=== PATIENT | male | born 1970 | race Caucasian/White ===

== ENCOUNTER 2018-01-07 10:42 | Observation (INO) | payer OTHER ==
--- NOTE | 2018-01-07 11:54 | ER Document Report ---
ED Medical Screen (RME) - General Chief Complaint: Chest Pain Stated Complaint: CHEST PAIN Time Seen by Provider: 01/07/18 11:52 Notes: Patient states that over the last couple weeks she has had multiple episodes where he gets dizzy and the room starts spinning. He states he is also had some left shoulder pain. He had an episode this morning where after climbing some stairs and sitting down for a meeting he became very dizzy and had some left shoulder pain. He states this weekend he usually runs 3-5 miles on a treadmill however he was only able to go about 1/4 mile became so dizzy he had to stop. He did state that he went to an urgent care for this about 2 weeks ago and was placed on a Holter monitor for 24 hours. There is also that were negative. He denies any chronic medical conditions. No previous cardiac disease. TRAVEL OUTSIDE OF THE [place] IN LAST 30 DAYS: No - Related Data Allergies/Adverse Reactions: No Known Allergies Allergy (Verified 01/07/18 11:40) Past Medical History - Social History Chew tobacco use (# tins/day): No Frequency of alcohol use: Rare Drug Abuse: None - Past Medical History Cardiac Medical History: Denies: Hx Coronary Artery Disease, Hx Heart Attack, Hx Hypertension Pulmonary Medical History: Denies: Hx Asthma, Hx Bronchitis, Hx COPD, Hx Pneumonia Neurological Medical History: Denies: Hx Cerebrovascular Accident, Hx Seizures Renal/ Medical History: Denies: Hx Peritoneal Dialysis GI Medical History: Reports: Hx Gastroesophageal Reflux Disease Musculoskeltal Medical History: Denies Hx Arthritis Past Surgical History: Reports: Hx Cholecystectomy, Hx Orthopedic Surgery. Denies: Hx Pacemaker - Immunizations Hx Diphtheria, Pertussis, Tetanus Vaccination: Yes Physical Exam - Vital signs Vitals: Temp Pulse Resp BP Pulse Ox 98.8 F 85 17 139/60 H 97 01/07/18 10:50 01/07/18 10:50 01/07/18 10:50 01/07/18 10:50 01/07/18 10:50 Course - Vital Signs Vital signs: Temp Pulse Resp BP Pulse Ox 98.8 F 85 17 139/60 H 97 01/07/18 10:50 01/07/18 10:50 01/07/18 10:50 01/07/18 10:50 01/07/18 10:50
[2018-01-07 12:27] LABS: ABSOLUTE LYMPHOCYTES (AUTO) 1.8 10^3/uL (0.5-4.7); ABSOLUTE MONOCYTES (AUTO) 0.5 10^3/uL (0.1-1.4); ABSOLUTE NEUT (AUTO) 5.6 10^3/uL (1.7-8.2); BASOPHILS % (AUTO) 0.3 % (0-2); EOSINOPHILS % (AUTO) 0.5 % (0-6); HEMATOCRIT 49.2 % (37.9-51.0); HEMOGLOBIN 16.7 g/dL (13.5-17.0); LYMPHOCYTES % (AUTO) 22.9 % (13-45); MEAN CORPUSCULAR HEMOGLOBIN 30.2 pg (27.0-33.4); MEAN CORPUSCULAR HGB CONC 33.9 g/dL (32.0-36.0); MEAN CORPUSCULAR VOLUME 89 fl (80-97); MONOCYTES % (AUTO) 6.6 % (3-13); PLATELET COUNT 282 10^3/uL (150-450); RED BLOOD COUNT 5.52 10^6/uL (4.35-5.55); RED CELL DISTRIBUTION WIDTH 13.6 % (11.5-14.0); SEGMENTED NEUTROPHILS % (AUTO) 69.7 % (42-78); TOTAL CELLS COUNTED % (AUTO) 100 %; WHITE BLOOD COUNT 8.1 10^3/uL (4.0-10.5)
[2018-01-07 12:47] LABS: ALANINE AMINOTRANSFERASE 43 U/L (21-72); ALBUMIN 4.5 g/dL (3.5-5.0); ALKALINE PHOSPHATASE 59 U/L (38-126); ANION GAP 11 (5-19); ASPARTATE AMINO TRANSFERASE 30 U/L (17-59); BILIRUBIN,DIRECT 0.4 mg/dL (0.0-0.4); BILIRUBIN,TOTAL 0.5 mg/dL (0.2-1.3); BLOOD UREA NITROGEN 15 mg/dL (7-20); CALCIUM 9.7 mg/dL (8.4-10.2); CARBON DIOXIDE 29 mmol/L (22-30); CHLORIDE 102 mmol/L (98-107); GLUCOSE 91 mg/dL (75-110); POTASSIUM 4.9 mmol/L (3.6-5.0); SODIUM 142.2 mmol/L (137-145); TOTAL PROTEIN 7.9 g/dL (6.3-8.2)
--- NOTE | 2018-01-07 13:17 | EKG REPORT ---
SEVERITY:- NORMAL ECG - SINUS RHYTHM : Confirmed by: Bob Michel MD 07-Jan-2018 13:16:30
--- NOTE | 2018-01-07 16:25 | ER Document Report ---
ED General - General Mode of Arrival: Ambulatory Information source: Patient TRAVEL OUTSIDE OF THE [place] IN LAST 30 DAYS: No <ADRIANA RUFF - Last Filed: 01/07/18 17:56> <MARTHA EDOUARD - Last Filed: 01/07/18 22:16> - General Chief Complaint: Chest Pain Stated Complaint: CHEST PAIN Time Seen by Provider: 01/07/18 11:52 Notes: Patient is a 47-year-old male with a history of GERD presents to the emergency department complaining of intermittent heart palpitations and dizziness onset 1 month ago worsening today. Patient states that his dizziness and heart palpitations is exasperated with movement and exercise. Patient states when he was recently running on a treadmill when he was only able to run 1/4 of a mile before becoming light headed when he is normally able to run a couple of miles. Patient states that he went to urgent care and was directed to come to the emergency department. Patient also complains of some left shoulder pain. ( ADRIANA RUFF) - Related Data Allergies/Adverse Reactions: No Known Allergies Allergy (Verified 01/07/18 11:40) Past Medical History - General Information source: Patient - Social History Smoking Status: Never Smoker Chew tobacco use (# tins/day): No Frequency of alcohol use: Rare Drug Abuse: None Family History: Reviewed & Not Pertinent Patient has suicidal ideation: No Patient has homicidal ideation: No GI Medical History: Reports: Hx Gastroesophageal Reflux Disease Past Surgical History: Reports: Hx Cholecystectomy, Hx Orthopedic Surgery - Immunizations Hx Diphtheria, Pertussis, Tetanus Vaccination: Yes <ADRIANA RUFF - Last Filed: 01/07/18 17:56> Review of Systems - Review of Systems Constitutional: No symptoms reported EENT: No symptoms reported Cardiovascular: See HPI, Palpitations, Dizziness, Lightheaded Respiratory: No symptoms reported Gastrointestinal: No symptoms reported Genitourinary: No symptoms reported Male Genitourinary: No symptoms reported Musculoskeletal: No symptoms reported Skin: No symptoms reported Hematologic/Lymphatic: No symptoms reported Neurological/Psychological: No symptoms reported -: Yes All other systems reviewed and negative <ADRIANA RUFF - Last Filed: 01/07/18 17:56> Physical Exam <ADRIANA RUFF - Last Filed: 01/07/18 17:56> <MARTHA EDOUARD - Last Filed: 01/07/18 22:16> - Vital signs Vitals: Temp Pulse Resp BP Pulse Ox 98.8 F 85 17 139/60 H 97 01/07/18 10:50 01/07/18 10:50 01/07/18 10:50 01/07/18 10:50 01/07/18 10:50 - Notes Notes: GENERAL: Alert, interacts well. No acute distress. HEAD: Normocephalic, atraumatic. EYES: Pupils equal, round, and reactive to light. Extraocular movements intact. ENT: Oral mucosa moist, tongue midline. NECK: Full range of motion. Supple. Trachea midline. LUNGS: Clear to auscultation bilaterally, no wheezes, rales, or rhonchi. No respiratory distress. HEART: Regular rate and rhythm. No murmurs, gallops, or rubs. EXTREMITIES: Moves all 4 extremities spontaneously. NEUROLOGICAL: Alert and oriented x3. Normal speech. PSYCH: Normal affect, normal mood. SKIN: Warm, dry, normal turgor. No rashes or lesions noted. (ADRIANA RUFF) Course - Laboratory Result Diagrams: 01/07/18 11:53 01/07/18 11:53 <ADRIANA RUFF - Last Filed: 01/07/18 17:56> - Laboratory Result Diagrams: 01/07/18 11:53 01/07/18 11:53 - Diagnostic Test Radiology reviewed: Reports reviewed - EKG Interpretation by Ct EKG shows normal: Sinus rhythm Rate: Normal Rhythm: NSR <MARTHA EDOUARD - Last Filed: 01/07/18 22:16> - Re-evaluation Re-evalutation: 01/07/18 17:50 Dr. Flynn recommends patient for admission. 01/07/18 17:56 Dr. Robb accepts patient for admission. (ADRIANA RUFF) Patient is a 47-year-old male who presents complaining of dizziness and left- sided chest pain into his arm. No chest pain currently. Troponin is negative. No acute EKG findings. Patient has been having increasing symptoms over the last month. Discussed with cardiology and the hospitalist service. Patient will be kept for stress test tomorrow. He is agreeable to this plan. Aspirin has been given. Stable for admission. (MARTHA EDOUARD) - Vital Signs Vital signs: Temp Pulse Resp BP Pulse Ox 98.2 F 71 18 133/80 H 97 01/07/18 20:02 01/07/18 20:02 01/07/18 20:02 01/07/18 20:02 01/07/18 20:02 Discharge - Discharge Admitting Provider: Dr. Robb <ADRIANA RUFF - Last Filed: 01/07/18 17:56> - Discharge Admitting Provider: Oneal robb Unit Admitted: Telemetry <MARTHA EDOUARD - Last Filed: 01/07/18 22:16> - Discharge Clinical Impression: Dizziness Chest pain Qualifiers: Chest pain type: unspecified Qualified Code(s): R07.9 - Chest pain, unspecified Condition: Stable Disposition: ADMITTED OBSERVATION Scribe Attestation: 01/07/18 22:16 I personally performed the services described in the documentation, reviewed and edited the documentation which was dictated to the scribe in my presence, and it accurately records my words and actions. (MARTHA EDOUARD) Scribe Documentation - Scribe Written by Alex:: Alex Schafer, 01/07/2018 16:26 acting as scribe for :: James <ADRIANA RUFF - Last Filed: 01/07/18 17:56>
--- NOTE | 2018-01-07 17:38 | RADIOLOGY REPORT (SQ) ---
EXAM DESCRIPTION: CTA CHEST COMPLETED DATE/TIME: 01/07/2018 5:23 pm REASON FOR STUDY: evaluate for PE COMPARISON: None. TECHNIQUE: CT scan of the chest performed using helical scanning technique with dynamic intravenous contrast injection. Images reviewed with lung, soft tissue and bone windows. Reconstructed coronal and sagittal MPR images reviewed. Additional 3 dimensional post-processing performed to develop Maximal Intensity Projection images (VA P). All images stored on PACS. All CT scanners at this facility use dose modulation, iterative reconstruction, and/or weight based d osing when appropriate to reduce radiation dose to as low as reasonably achievable (ALARA). [facility]: Dose Right [facility]: CareDose [facility]: Dose Right [facility]: Teradose 4D [facility]: [employer] CONTRAST TYPE AND DOSE: Contrast bolus optimized for the pulmonary arteries. Not diagnostic for the aorta. RENAL FUNCTION: BUN 15 creatinine 1 RADIATION DOSE: CT Rad equipment meets quality standard of care and radiation dose reduction techniq ues were employed. CTDIvol: 16.5 - 16.6 mGy. DLP: 631 mGy-cm. . LIMITATIONS: None. FINDINGS: LUNGS AND PLEURA: No masses, infiltrates, pneumothorax. No pleural effusions, calcificati ons. AORTA AND GREAT VESSELS: No aneurysm. No dissection. HEART: No pericardial effusion. No significant coronary artery calcifications. PULMONARY ARTERIES: No emboli visualized in the main pulmonary arteries or the segmental branches. HILAR AND MEDIASTINAL STRUCTURES: No identified masses or abnormal nodes. HARDWARE: None in the chest. UPPER ABDOMEN: No significant findings. Limited exam. THYROID AND OTHER SOFT TISSUES: No masses. No adenopathy. BONES: No acute or significant finding. 3D MIPS: Confirm above findings. OTHER: No other significant finding. IMPRESSION: NORMAL CTA OF THE CHEST. NO PULMONARY EMBOLI. COMMENT: Quality ID # [id number]: Final reports with documentation of one or more dose reduction techniques (e.g., Automated exposure control, adjustment of the mA and/or kV according to patient size, use of iterative reconstruction technique) TECHNICAL DOCUMENTATION: JOB ID: [id number] [employer]- All Rights Reserved Reading location - IP/workstation name: [email or web address]
[2018-01-07] MEDS ORDERED: ASPIRIN 81 MG TABLET, CHEWABLE PO ONE (17:48)
[2018-01-07] MEDS ORDERED: NORMAL SALINE 1000 ML 1,000 ML IV PRN (19:06)
[2018-01-07] MEDS ORDERED: PROMETHAZINE HCL INJ 25 MG/1 ML VIAL IV PRN (19:06)
[2018-01-07] MEDS ORDERED: ACETAMINOPHEN 325 MG TABLET PO PRN (19:06)
[2018-01-07] MEDS ORDERED: MECLIZINE HCL 25 MG TABLET PO PRN (20:19)
--- NOTE | 2018-01-07 20:56 | PDOC H&P ---
History of Present Illness Admission Date/PCP: 01/07/18 18:02 Patient complains of: Vertigo and left-sided "shoulder" pain around 8:30 AM. History of Present Illness: CODEY JOY is a 47 year old male with no significant medical history was admitted with above-mentioned complaints. According to the patient, he had a" dizzy spell" and felt some left-sided shoulder pain 15 minutes after he climbed stair at his job. The episode lasted about half an hour and resolved without any intervention. The pain was associated with some palpitations but he denied any shortness of breath, nausea vomiting, diaphoresis or any syncope. He also denied any fever, chills or any cough or recent URI. He has heartburn for which he takes Dexilant. The patient said that he has been going to the gym 2-3 times a week since July 2017. He apparently had "vertiginous spells" intermittently and the last time was few days ago where he actually had to leave the gym because he was dizzy. He denied any focal weakness or numbness or any dysarthria or blurred vision. In the ED, his temperature was 98.8, heart rate 85, respiratory rate 17, blood pressure 139/60 with oxygen saturation of 97% on room air. His WBC was 8.1, hemoglobin 6.7. His troponins 2 sets are negative. A CAT scan angiogram of the chest was done which was negative for any PE. Past Medical History Cardiac Medical History: Denies: Coronary Artery Disease, Myocardial Infarction, Hypertension Pulmonary Medical History: Denies: Asthma, Bronchitis, Chronic Obstructive Pulmonary Disease (COPD), Pneumonia Neurological Medical History: Denies: Seizures GI Medical History: Reports: Gastroesophageal Reflux Disease Musculoskeltal Medical History: Denies: Arthritis Hematology: Denies: Anemia Past Surgical History Past Surgical History: Reports: Cholecystectomy, Orthopedic Surgery - right knee surgery and right knee ewing's cyst removed. Denies: Pacemaker Social History Smoking Status: Never Smoker Frequency of Alcohol Use: Rare Hx Recreational Drug Use: No - Advance Directive Resuscitation Status: Full Code Family History Parental Family History Reviewed: Yes - Father: CAD/[place] @ 50 Children Family History Reviewed: No Sibling(s) Family History Reviewed.: Yes Medication/Allergy Home Medications: Dexlansoprazole [Dexilant 60 mg Capsule] 60 mg PO DAILY 01/07/18 Allergies/Adverse Reactions: No Known Allergies Allergy (Verified 01/07/18 11:40) Review of Systems ROS unobtainable: Other - Pertinent positives and negatives as detailed in the HPI. The patient denies any abdominal pain, diarrhea, constipation or any urinary symptoms or focal deficit. Physical Exam Vital Signs: Temp Pulse Resp BP Pulse Ox 98.8 F 85 18 134/96 H 98 01/07/18 10:50 01/07/18 10:50 01/07/18 16:01 01/07/18 16:01 01/07/18 16:01 General appearance: PRESENT: no acute distress, well-developed, well-nourished Head exam: PRESENT: atraumatic, normocephalic Eye exam: PRESENT: conjunctiva pink, PERRLA. ABSENT: scleral icterus Ear exam: PRESENT: TM's normal bilaterally Mouth exam: PRESENT: moist, tongue midline Neck exam: PRESENT: full ROM. ABSENT: JVD Respiratory exam: PRESENT: clear to auscultation zoe. ABSENT: rales, rhonchi, wheezes Cardiovascular exam: PRESENT: RRR, +S1, +S2 Pulses: PRESENT: normal dorsalis pedis pul GI/Abdominal exam: PRESENT: normal bowel sounds, soft. ABSENT: distended, rebound, tenderness Rectal exam: PRESENT: deferred Extremities exam: ABSENT: pedal edema Neurological exam: PRESENT: alert, altered, awake. ABSENT: CN II-XII grossly intact, motor sensory deficit Results Laboratory Results: CBC: WBC 8.1, hemoglobin 16.7, hematocrit 49.2, MCV 89, W 13.6, platelets 282. CMP: Sodium 142.2, potassium 4.9, chloride 102, bicarb 29, anion gap 11, BUN 15 , creatinine 0.97. Liver enzymes within normal limits. TSH 1.59. Troponin 2 sets negative. EKG Comments: 12 lead EKG: Sinus rhythm, ventricular rate 80, [place] 0, LDH, no acute changes. No previous 12-lead EKG to compare. Impressions: Chest/Abdomen CTA 01/07/18 16:18 IMPRESSION: NORMAL CTA OF THE CHEST. NO PULMONARY EMBOLI. Assessment & Plan - Diagnosis (1) Chest pain at rest Is this a current diagnosis for this admission?: Yes Plan: Questionable cardiac and/or musculoskeletal. CTA chest negative. Troponin 2 negative and there are no acute changes on his 12-lead EKG. We will check fasting lipid profile and an echocardiogram and schedule him for nuclear stress test in a.m. (2) Vertigo Is this a current diagnosis for this admission?: Yes Plan: Peripheral and/or central. The patient denied any recent URI and his ear exam was unremarkable. We will check a head MRI and if it is negative he may to be referred to vestibular therapy as outpatient. Meclizine as needed. Of note, the patient had a holter monitor on 01/01/2018 (indication: Dizziness) which was negative. An event monitor/cardiology consult were recommended. (3) GERD (gastroesophageal reflux disease) Qualifiers: Esophagitis presence: esophagitis presence not specified Qualified Code(s) : K21.9 - Gastro-esophageal reflux disease without esophagitis Is this a current diagnosis for this admission?: No Plan: PPI. - Time Time Spent: 50 to 70 Minutes Anticipated discharge: Home
[2018-01-07] MEDS: HEPARIN SOD (PORCINE) 5,000 UNIT/ML 1 ML SYRINGE SUBCUT SCH (21:43)
[2018-01-07 22:23] LABS: APPEARANCE,URINE CLOUDY; BILIRUBIN,URINE NEGATIVE (NEGATIVE); COLOR,URINE YELLOW; GLUCOSE, URINE NEGATIVE (NEGATIVE); KETONES,URINE NEGATIVE (NEGATIVE); LEUKOCYTE ESTERASE,URINE NEGATIVE (NEGATIVE); NITRITE,URINE NEGATIVE (NEGATIVE); PROTEIN,URINE NEGATIVE (NEGATIVE); UROBILINOGEN,URINE NEGATIVE mg/dL (<2.0)
[2018-01-07 22:31] LABS: URINE SPECIFIC GRAVITY > 1.060
[2018-01-08 05:10] LABS: HEMATOCRIT 45.7 % (37.9-51.0); HEMOGLOBIN 15.5 g/dL (13.5-17.0); MEAN CORPUSCULAR HEMOGLOBIN 30.4 pg (27.0-33.4); MEAN CORPUSCULAR VOLUME 89 fl (80-97); PLATELET COUNT 253 10^3/uL (150-450); RED BLOOD COUNT 5.11 10^6/uL (4.35-5.55); RED CELL DISTRIBUTION WIDTH 14.1 % (11.5-14.0); WHITE BLOOD COUNT 6.9 10^3/uL (4.0-10.5)
[2018-01-08 05:33] LABS: ANION GAP 10 (5-19); BLOOD UREA NITROGEN 16 mg/dL (7-20); CALCIUM 8.9 mg/dL (8.4-10.2); CARBON DIOXIDE 25 mmol/L (22-30); CHLORIDE 108 mmol/L (98-107); GLUCOSE 95 mg/dL (75-110); POTASSIUM 4.4 mmol/L (3.6-5.0); SODIUM 143.2 mmol/L (137-145)
[2018-01-08] MEDS: HEPARIN SOD (PORCINE) 5,000 UNIT/ML 1 ML SYRINGE SUBCUT SCH ×2 (06:14→16:38)
[2018-01-08 07:47] LABS: CHOLESTEROL 171.78 mg/dL (0-200); TRIGLYCERIDES 263 mg/dL (<150)
[2018-01-08 07:58] LABS: DIRECT LDL 129 mg/dL (<100)
[2018-01-08] MEDS ORDERED: LANSOPRAZOLE 30 MG TAB.RAP.DR PO SCH (08:00)
[2018-01-08 08:01] LABS: VLDL CHOLESTEROL 52.6 mg/dL (10-31)
[2018-01-08] MEDS ORDERED: ASPIRIN 325 MG TABLET, ENT COATED PO SCH (10:00)
--- NOTE | 2018-01-08 12:14 | DRAGON STRESS TEST REPORT ---
INTRAVENOUS LEXISCAN CARDIOLITE STRESS TEST USING SINGLE PHOTON EMMISION COMPUTERIZED TOMOGRAPHIC. DATE OF PROCEDURE: January 08, 2018, INDICATION : Chest pain CARDIAC RISK FACTORS: Family history of CAD RESTING EKG: Sinus rhythm without any baseline ST-T wave changes STRESS EKG: No significant changes noted with LexiScan bolus REASON FOR TERMINATION: Protocol. PROCEDURE REPORT: Baseline heart rate 76 beats per minute with blood pressure of 114/75. Patient had no significant complaints. Heart rate at 2 minutes post bolus 115 with a blood pressure of 127/72. 3 minutes post bolus heart rate 89 with blood pressure of 128/75. No significant EKG changes were noted. Patient had no significant complaints during the procedure or postprocedure. Patient injected with Aminophyllin 75 mg at 3 minutes or later after Lexiscan bolus. CONCLUSIONS: Normal EKG and hemodynamic response to IV LexiScan. NUCLEAR DATA: At rest the patient was given 14.19 millicuries of technetium 99 sestamibi injected intravenously. As per protocol rest gated SPECT images were obtained. On day of stress test, the patient was given intravenous LexiScan at a dose of 0.4 mg in 5 mL intravenously, followed by flush with normal saline. Subsequently the stress dose of 42.8 millicuries of technetium 99 sestamibi was injected intravenously. As per protocol stress gated images were obtained. NUCLEAR INTERPRETATION: Both raw and processed data were used for interpretation. Visual, qualitative, computer-generated quantitative data was used. There was good myocardial uptake of technetium compound. Motion artifact and soft tissue attenuations were noted. Increased visceral uptake was noted. No definitive areas of transient perfusion defect noted except for mild/borderline decreased uptake in the distal anterior wall possibly related to attenuation artifact. Clinical correlation is requested, there were no corresponding wall motion abnormalities noted on gated imaging. No definitive areas of fixed perfusion defect or scars noted. EKG gated imaging showed LV EF at 54 %, rest and stress gated EF similar visually. T. I D. ratio was 1.12. Lung heart ratio noted to be within normal limits 0.30. No significant extracardiac and abnormal radiotracer activities were noted. RV free wall uptake was noted to be WNL. IMPRESSION: Also refer to comments under nuclear interpretation. Also test results needs to be interpreted in the context of pretest probability. 1. No definitive areas of transient perfusion defect noted except for mild/ borderline decreased uptake in the distal anterior wall possibly related to attenuation artifact. Clinical correlation is requested. 2. There is no definitive scintigraphic evidence of myocardial infarction/scar. 3. EKG gated imaging shows left ventricular ejection fraction of approx. 54 %. 4. Clinical correlation requested as occasionally single vessel disease or balanced ischemia could be missed. In approximately 10% of the cases Lexiscan may not cause adequate vasodilatory stress. RECOMMENDATIONS: Aggressive risk factor modification and medical management. Further evaluation may be needed if continued symptoms or other high risk indicators are noted on clinical evaluation. Close cardiology follow-up is also recommended. Clinical correlation with echocardiogram derived ejection fraction. Inability to exercise by itself can lead to increased cardiovascular event risks. Consider cardiology consultation and or follow-up if clinically indicated. 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 DEO
--- NOTE | 2018-01-08 15:37 | RADIOLOGY REPORT (SQ) ---
EXAM DESCRIPTION: MRI HEAD WITHOUT COMPLETED DATE/TIME: 01/08/2018 2:32 pm REASON FOR STUDY: acute neurologic syndrome COMPARISON: None. TECHNIQUE: Multiplanar imaging includes non-contrasted T1, T2, FLAIR, and diffusion with ADC map seq uences. Images stored on PACS. LIMITATIONS: None. FINDINGS: ANATOMY: No anomalies. Normal vascular flow voids. Pituitary fossa normal. CSF SPACES: Normal in size and contour. No hemorrhage. CEREBRUM: Sulci and gyri normal in size and contour. Normal white matter signal on FLAIR imaging. No evidence of hemorrhage, mass, or extraaxial fluid collection. POSTERIOR FOSSA: No signal alteration. No hemorrhage. No edema, masses or mass effect. Internal taz tory canals, cerebello-pontine angles, mastoids normal. DIFFUSION IMAGING: Negative for acute or sub-acute infarction. ORBITS: No masses. Globes normal. PARANASAL SINUSES: No fluid levels. Mucosa normal. OTHER: No other significant finding. IMPRESSION: NORMAL MRI OF THE BRAIN WITHOUT INTRAVENOUS GADOLINIUM CONTRAST. EVIDENCE OF ACUTE STROKE: NO. TECHNICAL DOCUMENTATION: JOB ID: [id number] [email or web address]- All Rights Reserved Reading location - IP/workstation name: [email or web address]
[2018-01-08] MEDS ORDERED: AMINOPHYLLINE INJ/PF 250 MG/10 ML SDV IV ONE (16:18)
[2018-01-08] MEDS ORDERED: REGADENOSON INJ 0.4 MG/5 ML DISP.SYRIN IV ONE (16:18)
[2018-01-08 17:03] VITALS: BP 133/80
--- NOTE | 2018-01-09 08:11 | PDOC DISCHARGE SUMMARY ---
General - Admit/Disc Date/PCP Admission Date/Primary Care Provider: 01/07/18 18:02 He will be assigned a primary care provider at the time of discharge Discharge Date: 01/08/18 - Discharge Diagnosis (1) Chest pain Is this a current diagnosis for this admission?: Yes Summary: A Cardiolite stress test which revealed no evidence of reversible ischemia. He had normal left ventricular function. The patient does state that he has had some heart palpitations. He will need outpatient follow-up and possibly heart monitoring as an outpatient. Recommend that he establish care with a primary care physician. (2) Vertigo Is this a current diagnosis for this admission?: Yes Summary: He has been given a prescription for meclizine. This is been an ongoing problem for him (3) GERD (gastroesophageal reflux disease) Is this a current diagnosis for this admission?: Yes Summary: Continue Dexilant - Additional Information Resuscitation Status: Full Code Discharge Diet: As Tolerated, Cardiac Discharge Activity: Activity As Tolerated, Balance Activity w/Rest, Slowly Increase Activity Prescriptions: Meclizine HCl [Antivert 25 mg Tablet] 25 mg PO Q8HP PRN #30 tablet PRN Reason: Atorvastatin Calcium 40 mg PO DAILY #30 tablet Home Medications: Dexlansoprazole [Dexilant 60 mg Capsule] 60 mg PO DAILY 01/07/18 Atorvastatin Calcium 40 mg PO DAILY #30 tablet 01/08/18 Meclizine HCl [Antivert 25 mg Tablet] 25 mg PO Q8HP PRN #30 tablet 01/08/18 History of Present Illness History of Present Illness: CODEY JOY is a 47 year old male who presented to the emergency room with chest pain Hospital Course Hospital Course: The patient is a 47-year-old male with no significant past medical history. He has had issues with vertigo for the past several months. He does not have a primary care provider. The patient had another dizzy spell and complained of some left-sided shoulder pain that lasted about 15 minutes after he climbed stairs at his job. The pain was associated with some heart palpitations. The patient works out at the gym 2-3 times a week since July 2017 and apparently has had some issues with waxing and waning vertigo since that time. The patient's laboratory data at the time of admission was unremarkable. His serial troponins remained negative. He underwent Cardiolite stress testing which revealed no evidence of reversible ischemia. He had normal left ventricular function. The patient's telemetry monitoring was unremarkable. The patient did have an MRI of the brain as well due to his ongoing dizziness which was normal. At this point maximum hospital benefits been reached. The patient will establish care with a primary care provider and this can further be worked up as an outpatient. He will be discharged home today in stable condition. Physical Exam Vital Signs: Temp Pulse Resp BP Pulse Ox 98.3 F 72 18 133/80 H 98 01/08/18 17:01 01/08/18 17:01 01/08/18 17:01 01/08/18 17:01 01/08/18 17:01 Intake & Output 01/08/18 01/09/18 01/10/18 06:59 06:59 06:59 Intake Total 300 Balance 300 General appearance: PRESENT: no acute distress, well-developed, well-nourished Head exam: PRESENT: atraumatic, normocephalic Eye exam: PRESENT: conjunctiva pink, EOMI, PERRLA. ABSENT: scleral icterus Ear exam: PRESENT: normal external ear exam Mouth exam: PRESENT: moist, tongue midline Neck exam: ABSENT: carotid bruit, JVD, lymphadenopathy, thyromegaly Respiratory exam: PRESENT: clear to auscultation zoe. ABSENT: rales, rhonchi, wheezes Cardiovascular exam: PRESENT: RRR. ABSENT: diastolic murmur, rubs, systolic murmur GI/Abdominal exam: PRESENT: normal bowel sounds, soft. ABSENT: distended, guarding, mass, organolmegaly, rebound, tenderness Rectal exam: PRESENT: deferred Extremities exam: PRESENT: full ROM. ABSENT: calf tenderness, clubbing, pedal edema Musculoskeletal exam: PRESENT: ambulatory Neurological exam: PRESENT: alert, awake, oriented to person, oriented to place , oriented to time, oriented to situation, CN II-XII grossly intact. ABSENT: motor sensory deficit Psychiatric exam: PRESENT: appropriate affect, normal mood. ABSENT: homicidal ideation, suicidal ideation Skin exam: PRESENT: dry, intact, warm. ABSENT: cyanosis, rash Results Laboratory Results: 01/08/18 04:43 01/08/18 04:43 01/07/18 01/08/18 01/08/18 22:47 04:43 10:48 Troponin I < 0.012 < 0.012 < 0.012 Impressions: Chest/Abdomen CTA 01/07/18 16:18 IMPRESSION: NORMAL CTA OF THE CHEST. NO PULMONARY EMBOLI. Head MRI 01/08/18 00:00 IMPRESSION: NORMAL MRI OF THE BRAIN WITHOUT INTRAVENOUS GADOLINIUM CONTRAST. EVIDENCE OF ACUTE STROKE: NO. Qualifiers - * PATEINT BEING DISCHARGED WITH ANY OF THE FOLLOWING DIAGNOSIS?: No Plan Time Spent: Greater than 30 Minutes
== END 2018-01-08 17:28 | disposition home or self-care (01) ==
LOC: ER 10:42 → INTOOBSV 18:02 → EH 18:02 → 4N 19:24
PROVIDERS: ADMIT Emergency Medicine; ATTEND Emergency Medicine
DX: R07.9 Chest pain, unspecified (principal); R00.2 Palpitations; R42 Dizziness and giddiness; K21.9 Gastro-esophageal reflux disease without esophagitis; M25.512 Pain in left shoulder; Z90.49 Acquired absence of other specified parts of digestive tract; Z82.49 Family history of ischemic heart disease and other diseases of the circulatory system; Z79.899 Other long term (current) drug therapy
CPT/HCPCS: 93005; 99285; 36415 ×2; 83735 ×2; 84443; 85025; 85027; 80048; 80053; 81001; 84484 ×2; 80061; 93017; 70551; 78452; 71275; 93010; G0378 ×3; A9500; J2785; J1644 ×2; J7030; J0280; Q9969

== ENCOUNTER 2018-07-31 07:35 | Day surgery (SDC) | payer OTHER ==
[~2018-07-31 07:35] MED LIST: DIPHENHYDRAMINE HCL 50 MG/ML VIAL ONE; EPINEPHRINE INJ 1 MG/10 ML DISP.SYRIN ONE; FENTANYL CITRATE INJ/PF 100 MCG/2 ML AMPUL ONE; FLUMAZENIL INJ 0.5 MG/5 ML VIAL ONE; GLUCAGON,HUMAN RECOMB 1 MG INJ ONE; NALOXONE HCL INJ/PF 0.4 MG/1 ML SDV ONE; ONDANSETRON HCL INJ/PF 4 MG/2 ML SDV ONE
[2018-07-31] MEDS: MIDAZOLAM 2 MG/2 ML INJ ONE ×2 (08:04→08:09)
--- NOTE | 2018-07-31 08:24 | Operative Report ---
Operative Report DATE OF SURGERY: 07/31/18 Operative Report: The risks, benefits and alternatives of the procedure including risks of bleeding, perforation requiring surgery are explained to the patient in detail and informed consent is obtained. Patient is placed in a left, lateral decubital position. Timeout was called. Conscious sedation medications are provided. A rectal examination is done which did not reveal any masses, tears or fissures. An Olympus videoscope was inserted into the patient's rectum. Scope was then carefully advanced all the way to the cecum. The cecum was identified by the usual anatomical landmarks including the ileocecal valve as well as the appendiceal office. Photodocumentation was obtained. The scope was then sequentially pulled back via the various segments of the colon including the ascending colon, hepatic flexure, transverse colon, splenic flexure, descending colon and finally into the rectosigmoid portions of the colon. Retroflexion maneuvers performed. PREOPERATIVE DIAGNOSIS: Colorectal cancer screening POSTOPERATIVE DIAGNOSIS: Normal screening colonoscopy OPERATION: Diagnostic colonoscopy SURGEON: SYLVESTER SERNA ANESTHESIA: Moderate Sedation - 4 mg of Versed, 100 mcg of fentanyl. Conscious sedation monitoring time 30 minutes. TISSUE REMOVED OR ALTERED: As noted above. COMPLICATIONS: None. ESTIMATED BLOOD LOSS: None. INTRAOPERATIVE FINDINGS: As noted above. PROCEDURE: Patient tolerated the procedure well. No immediate postprocedure complications are noted. Patient discharge in good condition. Discharge date 07/31/2018. Discharge diet: Regular. Discharge activity: Regular. 2-3-week follow-up to discuss findings. Patient is instructed call the office or proceed to the emergency room should there be any further problems or questions. 10-year surveillance colonoscopy.
[2018-07-31 09:54] VITALS: BP 115/73
== END 2018-07-31 09:35 | disposition home or self-care (01) ==
LOC: END 07:35
PROVIDERS: ATTEND Internal Medicine Gastroenterology
DX: Z12.11 Encounter for screening for malignant neoplasm of colon (principal); Z79.899 Other long term (current) drug therapy; Z80.0 Family history of malignant neoplasm of digestive organs
CPT/HCPCS: 45378; J2250; J3010; J0171; J1200; J1610; J2310; J2405; J3490